=== PATIENT | female | born 1975 | race Caucasian/White ===

== ENCOUNTER 2019-11-16 22:43 | Inpatient (IN) | payer MEDICAID, OTHER ==
[~2019-11-16] VITALS: Ht 154.9 cm; Wt 72.7 kg
[2019-11-16] MEDS ORDERED: SODIUM CHLORIDE 0.9% 1,000 ML IV ONE (23:00)
[2019-11-16 23:36] LABS: BASOPHILS % 0.3 % (0.0-2.0); HEMATOCRIT. 35.3 % (36.0-48.0); HEMOGLOBIN. 12.9 g/dL (12.0-16.0); LYMPHOCYTES % 28.9 % (20.0-50.0); MEAN CORPUSCULAR HEMOGLOBIN 30.3 pg (28.0-32.0); MEAN PLATELET VOLUME 9.6 fl (7.4-10.4); MONOCYTES % 8.7 % (2.0-8.0); NEUTROPHILS % 61.1 % (40.0-76.0); PLATELET 275 x1000/uL (130-400); RED BLOOD CELL COUNT 4.25 mill/uL (4.2-5.4); RED CELL DISTRIBUTION WIDTH 12.3 % (11.6-14.6)
[2019-11-16 23:42] LABS: CHLORIDE 111 mEq/L (98-107)
[2019-11-16] MEDS ORDERED: DILTIAZEM HCL 5MG/ML 5ML VIAL IV ONE (23:45)
[2019-11-16 23:48] LABS: ETHANOL BLOOD < 10 mg/dL
[2019-11-16 23:51] LABS: INR 0.9; PARTIAL THROMBOPLASTIN TIME 25.4 sec (23.4-31.0); PROTHROMBIN TIME 10.3 sec (9.6-11.0)
[2019-11-17] VITALS (9 sets, daily range): BP systolic 96–129; BP diastolic 51–67
[2019-11-17 00:04] LABS: CLARITY URINE CLEAR (CLEAR); COLOR URINE YELLOW (YELLOW); KETONES URINE NEGATIVE (NEGATIVE); LEUKOCYTE ESTERASE URINE NEGATIVE (NEGATIVE); NITRITE URINE NEGATIVE (NEGATIVE); OCCULT BLOOD URINE NEGATIVE (NEGATIVE); PH URINE 6.5 (4.5-8.0); PROTEIN URINE NEGATIVE (NEGATIVE); SPECIFIC GRAVITY URINE 1.004 (1.005-1.030); UROBILINOGEN URINE 0.2 E.U./dL (0.2-1.0)
[2019-11-17 00:12] LABS: *AMPHETAMINES SCREEN URINE NEGATIVE (NEGATIVE); *BARBITURATES SCREEN URINE NEGATIVE (NEGATIVE); *BENZODIAZEPINES SCREEN URINE NEGATIVE (NEGATIVE); *COCAINE SCREEN URINE NEGATIVE (NEGATIVE)
[2019-11-17 00:13] LABS: CANNABINOID URINE SCREEN NEGATIVE (NEGATIVE); METHADONE URINE SCREEN NEGATIVE (NEGATIVE); OPIATES URINE SCREEN NEGATIVE (NEGATIVE); PHENCYCLIDINE URINE SCREEN NEGATIVE (NEGATIVE)
[2019-11-17] MEDS ORDERED: LABETALOL HCL 20MG/4ML CARPUJECT IV SCH (01:00)
[2019-11-17] MEDS ORDERED: ACETAMINOPHEN 325MG TABLET PO PRN (09:30)
[2019-11-17] MEDS ORDERED: ONDANSETRON HCL 4MG/2ML INJ IV PRN (09:30)
[2019-11-17] MEDS ORDERED: METHIMAZOLE 5MG TABLET PO SCH (09:30)
[2019-11-17] MEDS ORDERED: METOPROLOL TARTRATE 25MG TABLET PO SCH (09:30)
[2019-11-17] MEDS ORDERED: POTASSIUM CHLORIDE 20MEQ TABLET SR PO SCH (12:30)
[2019-11-17] MEDS: METHIMAZOLE 5MG TABLET PO SCH ×2 (13:42→16:54)
[2019-11-17] MEDS: SODIUM CHLORIDE 0.9% 1,000 ML IV SCH (16:55)
[2019-11-17] MEDS: PROPRANOLOL HCL 10MG TABLET PO SCH (20:28)
[2019-11-17] MEDS ORDERED: METOPROLOL TARTRATE 50MG TABLET PO SCH (21:00)
[2019-11-18] VITALS (9 sets, daily range): BP systolic 92–131; BP diastolic 52–108
[2019-11-18] MEDS: SODIUM CHLORIDE 0.9% 1,000 ML IV SCH (00:44)
[2019-11-18] MEDS: METHIMAZOLE 5MG TABLET PO SCH ×2 (08:21→14:37)
[2019-11-18] MEDS: PROPRANOLOL HCL 10MG TABLET PO SCH (09:56)
[2019-11-18] MEDS ORDERED: PROP10TA10 PO (11:18)
[2019-11-18] MEDS ORDERED: TAP5 PO (11:18)
== END 2019-11-18 16:41 | disposition home or self-care (01) | DRG 427 ==
LOC: ER 22:43 → MICUSO 11-17 00:23 → 3WST 11-17 09:42
PROVIDERS: ADMIT Internal Medicine; ATTEND Internal Medicine
PROC: 5A2204Z Restoration of Cardiac Rhythm, Single (ICD-10-PCS; principal; 2019-11-17)
DX: E05.00 Thyrotoxicosis with diffuse goiter without thyrotoxic crisis or storm (principal); E87.8 Other disorders of electrolyte and fluid balance, not elsewhere classified; E44.1 Mild protein-calorie malnutrition; I47.1 Supraventricular tachycardia; E87.6 Hypokalemia; F41.9 Anxiety disorder, unspecified; I51.7 Cardiomegaly; E66.9 Obesity, unspecified; R73.9 Hyperglycemia, unspecified; Z68.30 Body mass index [BMI] 30.0-30.9, adult
CPT/HCPCS: 36415; 71045; 80053; 80305; 80320; 81003; 82533; 83036; 83520; 83735; 83880; 84439; 84443; 84481; 84484; 85025; 85651; 93005; 93306; 96374; 99285; J3490; J7030; G0480